=== PATIENT | male | born 1970 | race Caucasian/White ===

== ENCOUNTER 2024-05-18 09:00 | Emergency (ER) | payer OTHER, SELFPAY ==
[2024-05-18 09:05] VITALS: BP 118/83; BMI 30.2
--- NOTE | 2024-05-18 09:06 | ED.GENMED ---
History of Present Illness
General
Chief Complaint: Fainting/Passed Out
Source: patient and ambulance crew
Exam Limitations: none
Time Seen by Provider: 05/18/24 09:05
History of Present Illness
History of Present Illness:
See MDM
Past History
Past History
ED Past Medical History: None
ED Past Surgical History: None
Phy Exam
Physical Exam
Physical Exam:
See MDM
Scores
[id number] Score for Afib Stroke Risk
Age in Years (65=0, 65-74=1, >/=75=2): <65
Sex (Female=+1): Male
Congestive Heart Failure History (Yes=+1): No
Hypertension History (Yes=+1): No
Stroke/TIA/Thromboembolism History (Yes=+2): No
Vascular Disease History (Yes=+1): No
Diabetes Mellitus (Yes=+1): No
Score: 0
Anticoagulation Recommendations: Anticoagulation not indicated (as validated in nonvalvular afib). Consider anticoagulation irrespective of score in patients with HCM
Course
Orders/Labs/Results
Orders:
Orders
05/18/24 09:04
Electrocardiogram (*1) Urgent
Reason for Study: Chest Pain
EKG- Treatment ONCE
IV Insert/Care/Rem.- Treatment PRN
05/18/24 09:07
Complete Blood Count/With Diff Urgent
Comprehensive Metabolic Panel Urgent
Troponin I Urgent
05/18/24 09:11
Ondansetron Injectable [Zofran] 4 mg IV NOW STA
05/18/24 10:42
Electrocardiogram (*1) Urgent
Reason for Study: Palpitations
EKG- Treatment ONCE
Abnormal Lab Results
05/18/24
09:07
Absolute Lymphs (auto) 3.9 H 10^3/uL
(1.2-3.4)
Absolute Monos (auto) 1.2 H 10^3/uL
(0.1-0.6)
Monocytes % 11.2 H %
(1.7-9.3)
Glucose 108 H mg/dl
(70-99)
05/18/24 09:07
05/18/24 09:07
Vital Signs
Initial and Last Documented VS:
Initial Vital Signs
Pulse Resp BP Pulse Ox
74 23 118/83 98
05/18/24 09:05 05/18/24 09:05 05/18/24 09:05 05/18/24 09:05
Last Documented Vital Signs
Temp Pulse Resp BP Pulse Ox
97.8 F 144 20 117/73 97
05/18/24 09:09 05/18/24 10:45 05/18/24 10:45 05/18/24 10:45 05/18/24 10:45
MDM/Problems Addressed
Differential Diagnosis Includes:
HPI and MDM Narrative:
54-year-old male presenting for evaluation of of near syncope versus syncope. Patient was at work and he was eating breakfast with his colleagues. Soon after eating, patient felt faint and weak. He put his head down. He is not certain that he
actually passed out. He felt nauseous and fatigued. He went to the nurse and normal on was called. On arrival, patient states he is feeling much better. He does acknowledge that he had a similar episode several years back and had a negative
cardiac workup. Patient without complaint on arrival. We discussed the possibility of irregular cardiac arrhythmia as the source of the syncope versus near syncope. Will continue to monitor on telemetry and obtain basic blood work and EKG
Physical exam
General: Well appearing and non-toxic
HEENT: protecting airway
Neck: appears supple
CV: No evidence of cyanosis. Regular rate and rhythm. No murmur
Resp: No accessory muscle use
Abd: Non-distended
Extremities: No deformities. No distal leg edema
Neuro: alert
Psych: Normal affect
Skin: Intact
Problems Addressed including Acute and Chronic Conditions affecting care:
1. Syncope versus near syncope
Acuity: acute
Prognosis: stable
Details: Potentially vasovagal or cardiogenic. Will continue to monitor on telemetry. Will obtain basic blood work and EKG
Updates
Patient remaining symptom-free. Workup negative. Patient feels comfortable going home and discussed outpatient workup
11:15 AM just as patient was about to be discharged, he felt palpitations and was found to be tachycardic in 140s. Rhythm strip shows concern for A-fib. They quickly resolved on its own. Will start low-dose beta-brenda and aspirin given the low
[id number] score. Cardiology aware and set up appointment tomorrow morning
Differential Diagnosis (but not limited to): Near-syncope, syncope, cardiac arrhythmia
Testing considered: D-dimer but he is neither tachycardic nor hypoxic
Drug therapy (if applicable): OTC meds, please see d/c instruction regarding Rx drugs
Amount and/or Complexity of Data Reviewed
Clinical info obtained from: Patient
External data reviewed: N/A
Labs I independently reviewed (but not limited to): Troponin normal
Radiology: N/A
Pulse Ox: not hypoxic
EKG independently reviewed: Sinus rhythm, normal axis, no STEMI
[employer]: Sinus rhythm
Critical Care: N/A
Risk of Complication:
Social Determinants of health: Good social support
Discussed with other providers: N/A
Escalation of Care includes Admit/Obs: After being observed in the Emergency Department, pt stable for discharge.
Occasional wrong word or 'sound a like' substitutions may have occurred due to the inherent limitations of voice recognition software. Read the chart carefully and recognize, using context, where substitutions have occurred.
*Critical Care Note
Total Time (30-74mins, 75-104mins- exclusive of procedures): Not Applicable
ED Attending Note
-
Portions of this chart may have been created with voice recognition software.� Occasional wrong word or��sound alike� substitutions may have occurred due to the inherent limitations of voice recognition software.
Discharge Plan
Departure
Patient Disposition: Home (Routine Discharge)
Date of Disposition: 05/18/24
Time of Disposition: 10:26
Patient with high blood pressure during this ER visit?: No
Discharge Problem:
PAF (paroxysmal atrial fibrillation)
Prescriptions:
New
metoprolol succinate [Toprol XL] 25 mg tablet extended release 24 hr
12.5 mg PO DAILY Qty: 30 0RF
No Action
naproxen sodium [Aleve] 220 MG tablet
220 mg PO Q12
fluticasone propionate 1 SPRAY spray,suspension
2 spray intranasal DAILY
Referrals:
Rd Andersen MD [Active] -
NONE,* [Family Provider] -
Annie Read DO [Active] -
Activity Restrictions/Additional Instructions:
Please return for any worsening symptoms.
You may return at any time if you have further concerns.
You have an appointment with the account support specialist tomorrow morning at 11 AM in the [facility] office.
In addition to the new blood pressure medication, please start taking a baby aspirin until told otherwise by the account support specialist. Please bring the copy of the rhythm strips.
Thank you for choosing [facility].
Interventions
Interventions:
*Risk Screen - Suicide Last Done: 05/18/24 09:05
*General Assessment Last Done: 05/18/24 09:05
*Neglect/Abuse Screening Last Done: 05/18/24 09:05
ED- Fall Risk Assessment Last Done: 05/18/24 09:05
*ED COVID-19 Vaccine History Last Done: 05/18/24 09:05
ED- Cardiac Assessment Last Done: 05/18/24 09:05
ED- Neurological Assessment Last Done: 05/18/24 09:05
Discharge Date and Time
Print Language: NIGERIAN
[2024-05-18] MEDS: ZOFRAN 4 MG IV (09:13)
[2024-05-18 09:17] LABS: % Basophils 0.5 % (0-2); % Eosinophils 2.8 % (0-6); % Immature Granulocytes 0.4 % (0-0.5); % Lymphocytes 37.6 % (20.5-51.1); % Monocytes 11.2 % (1.7-9.3); % Neutrophils 47.5 % (42.2-75.2); Absolute Basophils 0.1 10^3/uL (0-0.2); Absolute Eosinophils 0.3 10^3/uL (0-0.7); Absolute Lymphocytes 3.9 10^3/uL (1.2-3.4); Absolute Monocytes 1.2 10^3/uL (0.1-0.6); Hematocrit 45.6 % (39.0-52.0); Hemoglobin 15.5 g/dL (13.0-18.0); Mean Corpuscular Hgb 30.1 pg (27.0-31.0); Mean Corpuscular Volume 88.5 fL (80.0-94.0); Mean Platelet Volume 10.1 fL (7.4-10.4); Nucleated Red Blood Cells % 0 % (-); Platelet Count 320 10^3/uL (130-400); Red Blood Cell Count 5.15 10^6/uL (4.70-6.10); Red Cell Dist. Width 12.3 % (11.5-14.5); White Blood Cell Count 10.4 10^3/uL (4.8-10.8)
[2024-05-18 09:30] LABS: ALT (SGPT) 38 U/L (0-50); AST (SGOT) 30 U/L (17-59); Albumin 4.6 g/dl (3.5-5.0); Alkaline Phosphatase 59 U/L (38-126); Blood Urea Nitrogen 15 mg/dl (9-20); Calcium 9.4 mg/dl (8.4-10.2); Carbon Dioxide 30 mmol/L (22-30); Chloride 100 mmol/L (98-107); Estimated Creatinine Clearance 99 ml/min; Glucose 108 mg/dl (70-99); Potassium 4.3 mmol/L (3.5-5.1); Sodium 137 mmol/L (135-145); Total Bilirubin 0.5 mg/dl (0.2-1.3); eGFR > 60.00
[2024-05-18 09:40] LABS: Troponin I < 0.012 ng/ml
[2024-05-18 10:45] VITALS: BP 117/73
[2024-05-18] MEDS: LOW STRENGTH ASPIRIN 81 MG PO (11:34)
[2024-05-18] MEDS: TOPROL XL 12.5 MG PO (11:35)
== END 2024-05-18 11:43 | disposition home or self-care (01) ==
LOC: EMR 09:00
PROVIDERS: EMERGENCY PHYSICIAN Student in an Organized Health Care Education/Training Program
DX: I48.0 Paroxysmal atrial fibrillation (principal); R55 Syncope and collapse
CPT/HCPCS: 99283; 96374; 80053; 84484; 85025; 93005

== ENCOUNTER → 2024-06-09 15:41 | Outpatient (REF) | payer OTHER, SELFPAY | LOC: HWRCS 15:41 | PROVIDERS: ATTENDING PHYSICIAN Internal Medicine Cardiovascular Disease | DX: R55 Syncope and collapse (principal) | CPT/HCPCS: 93306 ==